=== PATIENT | male | born 1945 | race Caucasian/White ===

== ENCOUNTER 2019-04-02 15:06 | Inpatient (IN) | payer OTHER, MEDICARE ==
[~2019-04-02] VITALS: Ht 170.2 cm; Wt 104.3 kg
[~2019-04-02 15:06] MED LIST: Acidophilus La100 GM; FENO145 PO; FURO20 PO; Micro-K10 MEQ PO; SERT50 PO; ZOLP10 PO; ZYRTEC10 M2 PO
[2019-04-02] MEDS ORDERED: ALBU90OI INH (17:55)
[2019-04-02] MEDS ORDERED: ATOR40TA PO (17:55)
[2019-04-02] MEDS ORDERED: VITAMIN D325 MCG PO (17:56)
[2019-04-02] MEDS ORDERED: Flonase 0.05% N16 GM (17:59)
[2019-04-02] MEDS ORDERED: HUMULIN R500 UNIT/1 SQ (18:00)
[2019-04-02] MEDS ORDERED: LEVSOD75 PO (18:00)
[2019-04-02] MEDS ORDERED: LISI20 PO (18:01)
[2019-04-02] MEDS ORDERED: METF500 PO (18:02)
[2019-04-02] MEDS ORDERED: Robaxin-750750 MG PO (18:02)
[2019-04-02] MEDS ORDERED: METO100 PO (18:03)
[2019-04-02] MEDS ORDERED: Thera-M1 EACH PO (18:03)
[2019-04-02] MEDS ORDERED: NITR.4SL PO (18:04)
[2019-04-02] MEDS ORDERED: Omeprazole20 M1 PO (18:04)
[2019-04-02] MEDS ORDERED: Vitamin B-650 MG PO (18:05)
[2019-04-02] MEDS ORDERED: WARF5 PO (18:06)
[2019-04-02] MEDS ORDERED: Vitamin B Comple1 EA PO (18:06)
[2019-04-02] MEDS ORDERED: WARF2.5 PO (18:07)
[2019-04-02] MEDS ORDERED: Maglox Liquid360 ML PO (18:12)
[2019-04-02] MEDS ORDERED: DILTIAZEM 24HR240 M3 PO (18:12)
[2019-04-02] MEDS ORDERED: Glucose4 GM PO (18:13)
[2019-04-02] MEDS ORDERED: Humulin R500 UNIT/1 SC (18:14)
[2019-04-02] MEDS ORDERED: Thera-Gesic Ana85 GM TOP (18:16)
--- NOTE | 2019-04-02 18:54 | NUR ---
PT TO ROOM FROM ED. ORIENTED TO RM AND CALL LIGHT. BEDDING AND GOWN CHANGED. CALL LIGHT IN PLACE. PT A/O. REPORTS NO CONCERNS AT THIS TIME. DR. RIELY WAS HERE TO CHECK IN ON PT AND DISCUSS INSULIN. DR RILEY WOULD LIKE CBG Q3HRS FOR THIS PT. PT REPORTS WEARING DENTURES BUT THEY ARE AT HOME. PT R TOE IS BLACK AND MOST OF THE FOOT IS RED. REPORTS HAS NEUROPATHY AT BASELINE.
[2019-04-03 04:14] LABS: BASOPHILS ABSOLUTE AUTO 0.04 K/mm3 (0.00-0.23); BASOPHILS PERCENT AUTO 0 % (0-2); EOSINOPHILS ABSOLUTE AUTO 0.07 K/mm3 (0.00-0.68); EOSINOPHILS PERCENT AUTO 1 % (0-6); Hemoglobin 10.7 g/dL (13.5-17.5); IMMATURE GRAN PERCENT AUTO 1 % (0-1); LYMPHOCYTES PERCENT AUTO 12 % (21-46); MONOCYTES ABSOLUTE AUTO 1.08 K/mm3 (0.16-1.47); MONOCYTES PERCENT AUTO 7 % (4-13); Mean Corpuscular HGB 28.8 pg (26.0-34.0); Mean Corpuscular HGB Conc 33.4 g/dL (31.5-36.5); Mean Corpuscular Volume 86 fL (80-100); Mean Platelet Volume 9.5 fL (9.1-12.4); NEUTROPHILS ABSOLUTE AUTO 11.41 K/mm3 (1.96-9.15); NEUTROPHILS PERCENT AUTO 79 % (41-73); Platelet Count 366 K/mm3 (150-400); RDW Coefficient Variation 13.8 % (11.7-14.2); RDW Standard Deviation 43.7 fL (35.1-46.3); Red Blood Cell Count 3.72 M/mm3 (4.30-5.90)
[2019-04-03 04:34] LABS: Bun/Creatinine Ratio 14.8 (12.0-20.0); Calcium, Blood 8.9 mg/dL (8.5-10.1); Creatinine, Blood 1.28 mg/dL (0.60-1.20); Potassium, Blood 3.9 mmol/L (3.5-5.5)
[2019-04-03 04:41] LABS: Prothrombin Time Results >90.0 Sec (9.7-11.5)
[2019-04-03 04:42] LABS: International Normalized Ratio > 10.52
--- NOTE | 2019-04-03 04:57 | NUR ---
ATTEMPTED TO CALL HOSPITALIST TO NOTIFY OF CRITICAL INR VALUE. NO ANSWER AT THIS TIME. WILL WAIT FOR CALL BACK.
--- NOTE | 2019-04-03 05:12 | NUR ---
SPOKE WITH DR. SKINNER REGARDING CRITICAL LAB VALUE OF INR 10.52. ORDER TO HOLD COUMADIN.
--- NOTE | 2019-04-03 05:26 | NUR ---
SHIFT SUMMARY: PT RESTING MOST OF SHIFT. A&O X4. VS WNL. R GREAT TOE GANGRENOUS WITH FOUL ODOR. WARMTH AND REDNESS NOTED AROUND SITE. PODIATRY CONSULT CALLED IN. MINIMAL PO INTAKE. FLUIDS INFUSING PER ORDERS. TOTAL URINE OUTPUT OF 200CC. URINE SABRINA IN COLOR. INR CRITICIALLY HIGH THIS MORNING. PLAN TO HOLD COUMADIN PER ORDERS. ABX INFUSING. PT WITHOUT ANY C/O AT THIS TIME.
--- NOTE | 2019-04-03 07:36 | NUR ---
Permission for care was given 04/03/2019 at 0730.
--- NOTE | 2019-04-03 11:19 | NUR ---
CALLED DR GONG REGARDING CONSULT DR GONG PLANS TO BE IN THIS EVENING TO SEE PT. ORDERS OBTAINED TO MAKE NPO AFTER RAHEEM COBB.
[2019-04-03 14:56] LABS: International Normalized Ratio 3.52
[2019-04-03 15:02] LABS: Prothrombin Time Results 35.1 Sec (9.7-11.5)
--- NOTE | 2019-04-03 17:54 | NUR ---
SUMMARY DR GONG IN TO SEE PT THIS EVENING. PLAN FOR OR TOMORROW. PT'S CBG 308 THIS EVENING, COVERED W/12 UNITS HUMALOG PER ORDERS. PT SITTING UP EATING DINNER AT THIS TIME. R FOOT WRAPPED TO KEEP CLEAN WHEN AMBULATES. CALL LIGHT IN REACH. PT CALLS APPROPRIATELY.
--- NOTE | 2019-04-04 03:15 | NUR ---
PT MOVED FROM ROOM 232 TO ROOM 209. ALL BELONGINGS GATHERED AND TAKEN WITH PT. SAFETY MEASURES IN PLACE. WILL CONTINUE TO MONITOR.
[2019-04-04 04:44] LABS: International Normalized Ratio 1.32; Prothrombin Time Results 13.9 Sec (9.7-11.5)
--- NOTE | 2019-04-04 06:00 | NUR ---
SHIFT SUMMARY HAD RESTED SINCE BEING MOVED. HAS SPILLED URINE ON HIMSELF AND NEEDED LINEN CHANGE X2 THIS SHIFT. HAS BEEN NPO IS BEFORE MIDNIGHT. DENEIS PAIN, DISCOMFRT, OR FURTHER NEEDS AT THIS TIME. SAFETY MEASURES IN PLACE. WILL CONTINUE TO MONITOR.
--- NOTE | 2019-04-04 06:33 | NUR ---
TAKEN TO SURGERY BY DAVE MCKNIGHT.
--- NOTE | 2019-04-04 07:06 | NUR ---
PT BROUGHT TO [facility] VIA GURNEY. History, Chart, Medications and Allergies reviewed before start of procedure.Patient confirms NPO status and agrees with scheduled surgery. Lungs clear T/O to Auscultation.
--- NOTE | 2019-04-04 07:07 | NUR ---
VASCULAR ACCESS PT BROUGHT TO [facility] WITH IV ALREADY IN PLACE IN RIGHT AC WITH WINDOW DRESSING. PATENT AND INFUSING.
--- NOTE | 2019-04-04 08:10 | NUR ---
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 ASHLEY WRAP TO RLE CDI. PT A&O X4 WITH STABLE VS. DENIES N/V AND PAIN. PT APPEARS COMFORTABLE AND IS PLEASANT.
--- NOTE | 2019-04-04 17:43 | NUR ---
SHIFT SUMMARY: PT POD #0 FOR TRANSMETATARSAL AMPUTATION. NON WEIGHT BEARING TO RLE. ASHLEY WRAP CDI WITHOUT DRAINAGE. CBGS RANGING IN 200'S. COVERED WITH INSULIN PER EMAR. WORKED WITH PHYSICAL THERAPY TODAY. PT NEEDS FREQUENT REMINDERS THAT HE IS NWB TO RLE. PT USING URINAL TO VOID. OCCASIONALLY NEEDING A LINEN CHANGE. ANNE ADA DIET. DENIES N/V. PT STAND/PIVOT TO BEDSIDE COMMODE. BM X1. DENIES PAIN T/O SHIFT. CURRENTLY SITTING ON EDGE OF BED EATING DINNER WITHOUT COMPLAINTS.
--- NOTE | 2019-04-05 05:49 | NUR ---
SHIFT SUMMARY UNSUCCESSFULLY ATTEMPTED TO PLACE CONDOM CATH AT START OF SHIFT. SPILLED URINE ON HIMSELF, LINEN CHANGE ONCE. RESTED WELL THE REST OF THE SHIFT AFTER BEING GIVEN EYE MASK AND EAR PLUGS. 20G POWERGLIDE PLACED TO LEFT UPPER ARM THIS SHIFT. DENIES PAIN, DISCOMFRT, OR FURTHER NEEDS AT THIS TIME. SAFETY MEASURES IN PLACE. WILL CONTINUE TO MONITOR.
[2019-04-05 09:14] LABS: BASOPHILS ABSOLUTE AUTO 0.06 K/mm3 (0.00-0.23); BASOPHILS PERCENT AUTO 1 % (0-2); EOSINOPHILS ABSOLUTE AUTO 0.11 K/mm3 (0.00-0.68); EOSINOPHILS PERCENT AUTO 1 % (0-6); Hemoglobin 9.5 g/dL (13.5-17.5); IMMATURE GRAN ABSOLUTE AUTO 0.06 K/mm3 (0.00-0.10); IMMATURE GRAN PERCENT AUTO 1 % (0-1); LYMPHOCYTES ABSOLUTE AUTO 1.45 K/mm3 (0.84-5.20); LYMPHOCYTES PERCENT AUTO 14 % (21-46); MONOCYTES ABSOLUTE AUTO 0.99 K/mm3 (0.16-1.47); MONOCYTES PERCENT AUTO 9 % (4-13); Mean Corpuscular HGB 28.8 pg (26.0-34.0); Mean Corpuscular HGB Conc 32.8 g/dL (31.5-36.5); Mean Corpuscular Volume 88 fL (80-100); Mean Platelet Volume 9.5 fL (9.1-12.4); NEUTROPHILS ABSOLUTE AUTO 7.99 K/mm3 (1.96-9.15); NEUTROPHILS PERCENT AUTO 75 % (41-73); Platelet Count 348 K/mm3 (150-400); RDW Coefficient Variation 13.9 % (11.7-14.2); RDW Standard Deviation 45.1 fL (35.1-46.3); White Blood Cell Count 10.66 K/mm3 (4.00-11.30)
--- NOTE | 2019-04-05 13:41 | NUR ---
DR. RILEY NOTIFIED OF GRAM (+) COCCI AND CLUSTERS. BLOOD CULTURES WERE TAKEN AT THE [facility] ON 04/02/19.
--- NOTE | 2019-04-05 18:40 | NUR ---
CHEST PAIN PT REPORTED PAIN THAT RADIATED FROM HIS CHEST TO HIS ABD AFTER EATING DINNER. PT REPORTS HE HAS THIS KIND OF PAIN AT HOME AND TAKES NITRO FOR IT. AFTER 1 TAB SL NITRO AND MAALOX THE PAIN RESOLVED. WILL CONTINUE TO MONITOR.
--- NOTE | 2019-04-05 18:43 | NUR ---
SHIFT SUMMARY PT HAS REPORTED MINIMAL PAIN THIS SHIFT. IS ABLE TO REPOSITION IN BED BUT REQUIRES SOME ASSISTANCE. PT IS TOLERATING PO. VSS. WILL REPORT TO ONCOMING RN.
--- NOTE | 2019-04-06 04:30 | NUR ---
SHIFT SUMMARY NO ACUTE CHANGES THIS SHIFT. A/O W/VSS. RLE ELEVATED WITH ASHLEY WRAP IN PLACE, APPEARS C/D/I. DENIED CHEST PAIN, DISCOMFORT, OR DYSPNEA T/O SHIFT. ABLE TO ASSIST WITH REPOSITIONING. CURRENTLY RESTING IN BED WITH CALL LIGHT IN REACH. WILL CONT TO MONITOR AND GIVE REPORT TO ONCOMING RN.
--- NOTE | 2019-04-06 19:43 | NUR ---
PT HAS BEEN STABLE THIS SHIFT. PT CHANGED MIND AND IS AGREEABLE TO BKA, PLAN POSSIBLE SURGERY MONDAY. BLOOD SUGARS COVERED T/O SHIFT. PT ANNE DIET. INCONTINENT IN ATTENDS, HAD BM ON BED HUFFMAN. PT WORKED WITH THERAPY BUT WAS NOT OOB. PT TURNS WELL. PT HAS RED SCAB LIKE BUMPS TO BOTH ARMS THAT HAVE WORSENED THIS SHIFT. NO ITCHING OR PAIN. DRESSING TO RIGHT FOOT CDI. PT CALLS APPROPRIATELY.
--- NOTE | 2019-04-07 04:11 | NUR ---
SHIFT SUMMARY PT IS A/O X4. HE HAS BEEN IN BED THROUGH THE SHIFT BUT SITS ON EDGE OF BED OCCASIONALLY. PT HAS BEEN NWB TO R LEG PER ORDERS. TOLERATING PO INTAKE. PT IS INCONTINENT AND HAS BEEN WEARING ATTENS. PT HAS BEEN CHANGED MULT TIMES AND ENCOURAGED USE OF URINAL. ASSISTED WITH ADL'S PRN.
[2019-04-07 13:56] LABS: Vancomycin, Trough 7.6 ug/mL (5.0-10.0)
--- NOTE | 2019-04-07 16:28 | NUR ---
NO ACUTE CHANGES SINCE ASSUMING CARE. PT DENIES PAIN, N/V, SOB. IV ABX INFUSING PER ORDERS. NPO AT MIDNIGHT FOR SUGERY TOMORROW. USING URINAL TO VOID. CALL LIGHT WITHIN REACH. FAMILY MEMBERS AT BEDSIDE FOR SUPPORT.
--- NOTE | 2019-04-07 23:30 | NUR ---
CALLED HOSPITALIST ABOUT RASH ON PT'S ARMS THAT IS NOW APPEARING ON LEGS WELL. DISCUSSED ONSET OF RASH, RASH SPREADING/WORSENING, AND NEW PT REPORTS OF BURNING FEELING IN AREAS WITH RASH. HOSPITALIST REPORTED NOT TO STOP ANY MEDICATIONS AT THIS POINT AND ORDERED BENADRYL AND A TOPICAL CREAM. SEE EMAR. MEDS GIVEN TO PT PER ORDERS.
--- NOTE | 2019-04-08 04:27 | NUR ---
SHIFT SUMMARY PT IS A/O BUT SEEMS FORGETFUL AT TIMES. HE HAS BEEN BEDREST THIS SHIFT. PT REPOSITIONS SELF WELL AND SITS ON EDGE OF BED TO USE URINAL. PT HAS BEEN CHANGED SEVERAL TORI D/T OCCASIONAL INCONTINENC. RN DISCUSSED RASH WITH ON-CALL HOSPITALIST; MEDS ORDERED. PT IS TOLERATING PO INTAKE AND VOIDING. ASSISTED WITH ADL'S PRN.
--- NOTE | 2019-04-08 08:46 | NUR ---
DR BROWN IN TO SEE PT.
[2019-04-08 10:21] LABS: BASOPHILS ABSOLUTE AUTO 0.06 K/mm3 (0.00-0.23); BASOPHILS PERCENT AUTO 1 % (0-2); EOSINOPHILS ABSOLUTE AUTO 0.27 K/mm3 (0.00-0.68); EOSINOPHILS PERCENT AUTO 4 % (0-6); Hematocrit 31.5 % (37.0-53.0); Hemoglobin 10.2 g/dL (13.5-17.5); IMMATURE GRAN ABSOLUTE AUTO 0.04 K/mm3 (0.00-0.10); IMMATURE GRAN PERCENT AUTO 1 % (0-1); LYMPHOCYTES ABSOLUTE AUTO 0.97 K/mm3 (0.84-5.20); LYMPHOCYTES PERCENT AUTO 14 % (21-46); MONOCYTES PERCENT AUTO 9 % (4-13); Mean Corpuscular HGB 28.7 pg (26.0-34.0); Mean Corpuscular HGB Conc 32.4 g/dL (31.5-36.5); Mean Corpuscular Volume 89 fL (80-100); Mean Platelet Volume 9.5 fL (9.1-12.4); NEUTROPHILS ABSOLUTE AUTO 5.14 K/mm3 (1.96-9.15); NEUTROPHILS PERCENT AUTO 73 % (41-73); Platelet Count 373 K/mm3 (150-400); RDW Coefficient Variation 14.3 % (11.7-14.2); RDW Standard Deviation 45.9 fL (35.1-46.3); Red Blood Cell Count 3.55 M/mm3 (4.30-5.90); White Blood Cell Count 7.08 K/mm3 (4.00-11.30)
[2019-04-08 10:36] LABS: Anion Gap 8 mmol/L (6-16); Blood Urea Nitrogen 15 mg/dL (8-24); Bun/Creatinine Ratio 17.2 (12.0-20.0); CO2, Blood 22 mmol/L (21-32); Calcium, Blood 8.8 mg/dL (8.5-10.1); Chloride, Blood 108 mmol/L (98-108); Creatinine, Blood 0.87 mg/dL (0.60-1.20); Glomerular Filtration Rate >60 (60-); Glucose, Blood 166 mg/dL (70-99); Sodium, Blood 138 mmol/L (136-145)
[2019-04-08 10:39] LABS: International Normalized Ratio 1.23
--- NOTE | 2019-04-08 14:01 | NUR ---
PT TRANSFERED TO DAY SURGERY VIA BED. History, Chart, Medications and Allergies reviewed before start of procedure.Patient confirms NPO status and agrees with scheduled surgery. Lungs clear T/O to Auscultation.
--- NOTE | 2019-04-08 14:03 | NUR ---
PT TO SURGERY
[2019-04-08 14:18] LABS: Vancomycin, Trough 18.6 ug/mL (5.0-10.0)
--- NOTE | 2019-04-08 14:39 | NUR ---
DURING PREOP CONSULT, PT STATED HE TOOK A NITRO YESTERDAY FOR "PAIN IN HIS CHEST" PHARMACY WAS CONTACTED TO VERIFY AND PT HAS RECIEVED 1 TO 2 DOSES SINCE HIS HOSPITAL ADMISSION. PT STATED AGAIN THAT IT WAS FOR "PAIN IN HIS CHEST AND STOMACH THAT HAS BEEN HAPPENING AFTER EATING." DR. NGUYEN ORDERED STAT LABS AND EKG IN PREOP.
--- NOTE | 2019-04-08 15:35 | NUR ---
04/08/19 1535 [place] Sandoval all entires by [email or web address] were entered by [email or web address].
--- NOTE | 2019-04-08 15:43 | NUR ---
04/08/2019 ASKED PATIENT FOR PERMISSION TO CARE FOR SAID PATIENT ON 04/09/2019. PATIENT AGREED.
--- NOTE | 2019-04-08 17:11 | NUR ---
1650-PT NOTED TO HAVE RED SPOTTY RASH ON ALL ARMS AND LEGS.
--- NOTE | 2019-04-08 18:46 | NUR ---
PT BACK TO ROOM FROM PACU VSS. PT C/O OF CP RATING 7/10 STATING WENT DOWN TO ABDOMEN. REQUESTED NITRO WHICH WAS GIVEN PER ORDERS. NOTIFIED DR LOZA; ORDERS OBTAINED. PT REPORTED NITRO RELIEVED SYMPTOMS. RATING RLE PAIN 7/10, MEDICATED PER ORDERS AND PLACED ICE TO AFFECTED EXTREMITY. DRESSING TO RLE CDI. CALL LIGHT IN REACH. FAMILY AT BEDSIDE.
[2019-04-09 04:52] LABS: BASOPHILS ABSOLUTE AUTO 0.03 K/mm3 (0.00-0.23); BASOPHILS PERCENT AUTO 0 % (0-2); EOSINOPHILS ABSOLUTE AUTO 0.01 K/mm3 (0.00-0.68); EOSINOPHILS PERCENT AUTO 0 % (0-6); Hematocrit 29.3 % (37.0-53.0); Hemoglobin 9.4 g/dL (13.5-17.5); IMMATURE GRAN ABSOLUTE AUTO 0.07 K/mm3 (0.00-0.10); IMMATURE GRAN PERCENT AUTO 1 % (0-1); LYMPHOCYTES ABSOLUTE AUTO 0.46 K/mm3 (0.84-5.20); LYMPHOCYTES PERCENT AUTO 4 % (21-46); MONOCYTES ABSOLUTE AUTO 0.24 K/mm3 (0.16-1.47); MONOCYTES PERCENT AUTO 2 % (4-13); Mean Corpuscular HGB 28.5 pg (26.0-34.0); Mean Corpuscular HGB Conc 32.1 g/dL (31.5-36.5); Mean Corpuscular Volume 89 fL (80-100); Mean Platelet Volume 9.8 fL (9.1-12.4); NEUTROPHILS ABSOLUTE AUTO 9.74 K/mm3 (1.96-9.15); NEUTROPHILS PERCENT AUTO 92 % (41-73); Platelet Count 371 K/mm3 (150-400); RDW Coefficient Variation 14.6 % (11.7-14.2); RDW Standard Deviation 47.2 fL (35.1-46.3); White Blood Cell Count 10.55 K/mm3 (4.00-11.30)
[2019-04-09 05:08] LABS: International Normalized Ratio 1.32; Prothrombin Time Results 13.9 Sec (9.7-11.5)
[2019-04-09 05:10] LABS: Albumin, Blood 2.1 g/dL (3.4-5.0); Anion Gap 11 mmol/L (6-16); Blood Urea Nitrogen 24 mg/dL (8-24); Bun/Creatinine Ratio 16.4 (12.0-20.0); CO2, Blood 19 mmol/L (21-32); Calcium, Blood 8.3 mg/dL (8.5-10.1); Chloride, Blood 104 mmol/L (98-108); Creatinine, Blood 1.46 mg/dL (0.60-1.20); Glomerular Filtration Rate 51 (60-); Glucose, Blood 241 mg/dL (70-99); Magnesium, Blood 1.4 mg/dL (1.6-2.4); Phosphorus, Blood 4.2 mg/dL (2.5-4.9); Potassium, Blood 5.3 mmol/L (3.5-5.5); Sodium, Blood 134 mmol/L (136-145)
--- NOTE | 2019-04-09 06:30 | NUR ---
SHIFT SUMMARY LYING IN SEMI FOWLERS WITH EYES OPEN WHILE WATCHING MORNING NEWS. HAS C/O HEARTBURN AND HAVING "GIRTH", STATES THAT MOST OF THE TIME AT HOME HE WILL USE HIS NITRO TO RELIEVE THE "GIRTH". BUT HAS REQUESTED MAALOX TWICE THIS SHIFT. FOLLOW UP TROPONIN CAME IN AT 0.24 WNL, PREVIOUS TROPONIN WAS 0.29. ELEVATED BP AT START OF SHIFT, BP CONTINUES TO TREND DOWN AFTER METOPROLOL AT HS. MEDICATED FOR PAIN X1 THIS SHIFT WITH DILAUDID. HAD C/O PHANTOM PAIN TO STUMP 7/10, POST PUSH, RATES PAIN AT 0/10 WITHIN THE HOUR. UNABLE TO DRAW AM LAB FROM [facility], LAB JAVED. DENIES FURTHER NEEDS OR WANTS AT THIS TIME. SAFETY MEASURES IN PLACE. WILL CONTINUE TO MONITOR.
--- NOTE | 2019-04-09 08:45 | NUR ---
PATIENT GAVE PERMISSION FOR THIS ROUTE SALES DELIVERY DRIVERS SUPERVISOR TO PROVIDE CARE ON 04/09/19.
--- NOTE | 2019-04-09 11:49 | NUR ---
PT COMPLAINED OF CHEST PAIN X2 THIS MORINING AT 0756 AT 0905. PAIN RESOLVED WITH NITRO SL BOTH TIMES. DR. OSMAN NOTIFIED THAT PT BECAME DIAPHORETIC AND COMPLAINED OF CHEST PAIN AFTER EATING. HE ALSO REPORTS HX OF HIATAL HERNIA. PT REPORTS HE HAS THIS PAIN AT HOME AND OFTEN TREATS WITH NITRO SL. TROPONIN WNL. WILL CONTINUE TO MONITOR.
[2019-04-09 15:12] LABS: Vancomycin, Trough 25.3 ug/mL (5.0-10.0)
--- NOTE | 2019-04-09 17:28 | NUR ---
SHIFT SUMMARY PT IS A 2 ASSIST FOR TRANSFERS. HE WAS ABLE TO WORK WITH THERAPY X 1 TODAY. PT HAS DENIED PAIN THIS SHIFT. HE DID REPORT CHEST PAIN THIS MORINING JUST BEFORE AND AFTER BREAKFAST. WHEN ASKED TO DESCRIBE THE PAIN PT POINTED TO THE EPIGASTRIC AREA AND STATED IT RADIATED DOWN INTO HIS ABD. PT WAS TREATED WITH NITRO, DR. OSMAN AWARE AND OK WITH THIS USE. PAIN WAS RELIEVED AFTER NITRO. PLAN TO INCREASE USE OF MAALOX BEFORE MEALS TO ATTEMPT TO PREVENT EPIGASTRIC PAIN. WOUND CULTURES REQUESTED FROM [facility]. PT CONTINUING WITH ANTIBIOTICS. VSS. WILL MONITOR UNTIL REPORT TO ONCOMING RN.
--- NOTE | 2019-04-10 04:29 | NUR ---
SHIFT SUMMARY POD 2 R BKA, STUMP SOCK CDI, PT KEEPING LEG ELEVATED. DENIES PAIN DURING SHIFT BUT REPORTS SMALL PHANTOM PAINS. PT TOLERATING PO WELL, DENIES NAUSEA. MEDICATED FOR INDIGESTION PER EMAR X1, PT REPORTED RELIEF. PT VOIDING WITH URINAL. RASH STILL PRESENT ON EXTREMETIES, PT REPORTS IT LOOKS BETTER AND IS FEELING BETTER.
[2019-04-10 05:34] LABS: BASOPHILS ABSOLUTE AUTO 0.02 K/mm3 (0.00-0.23); BASOPHILS PERCENT AUTO 0 % (0-2); EOSINOPHILS ABSOLUTE AUTO 0.05 K/mm3 (0.00-0.68); EOSINOPHILS PERCENT AUTO 1 % (0-6); Hematocrit 27.6 % (37.0-53.0); IMMATURE GRAN ABSOLUTE AUTO 0.05 K/mm3 (0.00-0.10); IMMATURE GRAN PERCENT AUTO 1 % (0-1); LYMPHOCYTES ABSOLUTE AUTO 1.44 K/mm3 (0.84-5.20); LYMPHOCYTES PERCENT AUTO 16 % (21-46); MONOCYTES ABSOLUTE AUTO 0.56 K/mm3 (0.16-1.47); MONOCYTES PERCENT AUTO 6 % (4-13); Mean Corpuscular HGB 29.2 pg (26.0-34.0); Mean Corpuscular HGB Conc 32.6 g/dL (31.5-36.5); Mean Corpuscular Volume 90 fL (80-100); Mean Platelet Volume 9.6 fL (9.1-12.4); NEUTROPHILS ABSOLUTE AUTO 6.76 K/mm3 (1.96-9.15); NEUTROPHILS PERCENT AUTO 76 % (41-73); Platelet Count 375 K/mm3 (150-400); RDW Coefficient Variation 14.9 % (11.7-14.2); RDW Standard Deviation 48.1 fL (35.1-46.3); Red Blood Cell Count 3.08 M/mm3 (4.30-5.90); White Blood Cell Count 8.88 K/mm3 (4.00-11.30)
[2019-04-10 05:54] LABS: International Normalized Ratio 1.44; Prothrombin Time Results 15.1 Sec (9.7-11.5)
[2019-04-10 06:01] LABS: Albumin, Blood 2.2 g/dL (3.4-5.0); Anion Gap 8 mmol/L (6-16); Blood Urea Nitrogen 35 mg/dL (8-24); Bun/Creatinine Ratio 18.9 (12.0-20.0); CO2, Blood 19 mmol/L (21-32); Calcium, Blood 8.2 mg/dL (8.5-10.1); Chloride, Blood 105 mmol/L (98-108); Creatinine, Blood 1.85 mg/dL (0.60-1.20); Glomerular Filtration Rate 38 (60-); Glucose, Blood 229 mg/dL (70-99); Phosphorus, Blood 3.8 mg/dL (2.5-4.9); Potassium, Blood 5.3 mmol/L (3.5-5.5); Sodium, Blood 132 mmol/L (136-145)
--- NOTE | 2019-04-10 08:10 | NUR ---
pt just voided dk yellow pt stated that it has been snow shoveler after drinking fluids reports phantom pain 5/10 can move the stump well min swelling no drainage to stump sock asked pt if it has been changed by surg stated once
--- NOTE | 2019-04-10 09:20 | NUR ---
pt reporting heartburn from hiatal hernia meds given physical therapy wanting to work with pt
--- NOTE | 2019-04-10 12:49 | NUR ---
assisted back into bed hob elev
--- NOTE | 2019-04-10 13:23 | NUR ---
pt req pain meds [address] rolon by to see pt new stump sock placed pt to have dressing changed daily by nurses no drainage noted pt jonathan well cleaned with hydorgen pyroxide
--- NOTE | 2019-04-10 15:04 | NUR ---
talked with [facility] for req of cx they had me fax a req to med rec
--- NOTE | 2019-04-10 15:28 | NUR ---
DR OSMAN CALLED PT HAVING LOW HR UNABLE TO FIND RADIAL PULSE COOL CLAMMY EXTREMETIES PT DENIES DIZZINES PHYSICAL THERAPY TO HOLD SESSION TELE ORDERED APICAL HR 46 CHECKED BS 203 B/P 105/48
--- NOTE | 2019-04-10 16:47 | NUR ---
maryana murray at bedside to give atropine 0.[address] sequeira called dr stacy davis left re angi
--- NOTE | 2019-04-10 17:28 | NUR ---
DR LANG AT BEDSIDE HR PER TELE 46
--- NOTE | 2019-04-10 17:40 | NUR ---
MEDS GIVEN PER SCHED PT TO TRANSFER TO PCU 3 TO CALL REPORT TO JUAN MIGUEL DALEY
[2019-04-10 18:03] LABS: Troponin I 0.068 ng/mL (0.000-0.040)
[2019-04-10 18:05] LABS: Thyroid Stimulating Hormone 6.05 uIU/mL (0.360-4.800)
--- NOTE | 2019-04-10 18:29 | NUR ---
PT TO PCU FROM SURGICAL FLOOR AFTER BRADYCARDIA EVENT. PT AWAKE ALERT AND ORIENTED EATING DINNER IN BED. PT DENIES C/O PAIN OR DIZZINESS. PT STATES HE WAS ASYMPTOMAIC DURING BRADYCARDIA. PT BRADYCARDIC NOW IN 40'S. BP 104/39. PT PALE WITH RASH TO EXT X4 2ND ABX REACTION; DR MEJIA CONSULTED. DR BARNARD CONSULTED FOR CARDIAC ISSUES. PT TO HAVE ECHO; LABS DRAWN. PT S/P RIGHT BKA, POST OP DAY TWO. ANTHONY C/D/I.
[2019-04-11 04:06] LABS: BASOPHILS ABSOLUTE AUTO 0.05 K/mm3 (0.00-0.23); BASOPHILS PERCENT AUTO 1 % (0-2); EOSINOPHILS PERCENT AUTO 2 % (0-6); Hematocrit 28.2 % (37.0-53.0); Hemoglobin 8.9 g/dL (13.5-17.5); IMMATURE GRAN ABSOLUTE AUTO 0.04 K/mm3 (0.00-0.10); IMMATURE GRAN PERCENT AUTO 0 % (0-1); LYMPHOCYTES ABSOLUTE AUTO 1.89 K/mm3 (0.84-5.20); LYMPHOCYTES PERCENT AUTO 20 % (21-46); MONOCYTES PERCENT AUTO 6 % (4-13); Mean Corpuscular HGB 28.3 pg (26.0-34.0); Mean Corpuscular HGB Conc 31.6 g/dL (31.5-36.5); Mean Corpuscular Volume 90 fL (80-100); Mean Platelet Volume 9.7 fL (9.1-12.4); NEUTROPHILS ABSOLUTE AUTO 6.76 K/mm3 (1.96-9.15); NEUTROPHILS PERCENT AUTO 71 % (41-73); Platelet Count 361 K/mm3 (150-400); RDW Coefficient Variation 15.3 % (11.7-14.2); RDW Standard Deviation 49.2 fL (35.1-46.3); Red Blood Cell Count 3.14 M/mm3 (4.30-5.90); White Blood Cell Count 9.54 K/mm3 (4.00-11.30)
[2019-04-11 04:22] LABS: International Normalized Ratio 1.6; Prothrombin Time Results 16.7 Sec (9.7-11.5)
[2019-04-11 04:32] LABS: Alanine Aminotransfer (ALT/SGP 18 U/L (12-78); Albumin, Blood 2.4 g/dL (3.4-5.0); Albumin/Globulin Ratio 0.6 (0.8-1.8); Anion Gap 8 mmol/L (6-16); Aspartate Aminotrans (AST/SGOT 21 U/L (12-37); Bilirubin, Total 0.5 mg/dL (0.1-1.0); Blood Urea Nitrogen 38 mg/dL (8-24); Bun/Creatinine Ratio 19.3 (12.0-20.0); CO2, Blood 19 mmol/L (21-32); Calcium, Blood 8.6 mg/dL (8.5-10.1); Chloride, Blood 107 mmol/L (98-108); Cholesterol 71 mg/dL (50-200); Creatinine, Blood 1.97 mg/dL (0.60-1.20); Globulin, Blood 3.9 g/dL (2.2-4.0); Glomerular Filtration Rate 36 (60-); Glucose, Blood 142 mg/dL (70-99); Phosphorus, Blood 3.1 mg/dL (2.5-4.9); Potassium, Blood 5.1 mmol/L (3.5-5.5); Sodium, Blood 134 mmol/L (136-145); Total Protein, Blood 6.3 g/dL (6.4-8.2); Triglycerides 185 mg/dL (30-160); Very Low Density Lipoprot Chol 37 mg/dL (6-32)
[2019-04-11 04:35] LABS: Alk Phos 81 U/L (50-136); CHOL/HDL RATIO 3.9; HDL Cholesterol 18 mg/dL (>39); LDL/HDL RATIO 0.9; Low Density Lipoprotein Chol 16 mg/dL (0-110)
--- NOTE | 2019-04-11 06:03 | NUR ---
SHIFT SUMMARY PT REMAINS A&OX4. STUMP DRESSING C/D/I. HEART RATE HAS INCREASED OVERNIGHT, NOW IN 60S. VSS. AFEBRILE. PT VOIDS WITHOUT PROBLEMS, CLEAR YELLOW URINE. PT CONCERNED WITH GOING HOME D/T HIS DOG BEING HOME. NO ACUTE3 EVENTS OVERNIGHT. WILL CONTINUE TO MONITOR.
--- NOTE | 2019-04-11 09:30 | NUR ---
pt complaining of 8/10 chest pain, he is diphoretic, Dr. Parks notified, EKG done, he is looking over that, b/p is high, ntg given with good relief. echo being done. call light in reach.
--- NOTE | 2019-04-11 10:38 | NUR ---
Echocardiogram using 0.60ml of Definity contrast performed.
--- NOTE | 2019-04-11 10:41 | NUR ---
pt reports 4/10 chest pain again, wants another ntg, states he normally has to take two to get it to resolve. this was given. b/p is not to low. call light in reach.
--- NOTE | 2019-04-11 10:50 | NUR ---
rates chest pain at 03/29 at this time. b/p 154/76
[2019-04-11 11:05] LABS: Vancomycin, Trough 21.6 ug/mL (5.0-10.0)
--- NOTE | 2019-04-11 18:27 | NUR ---
pt has had no further events of c.p. durring the day, is feeling much better, did get up twice to bsc for a bm, had 2 large. vs stable. no complaints. doing ok at this time. call light in reach.
[2019-04-12 04:36] LABS: Hematocrit 29.6 % (37.0-53.0); Hemoglobin 9.6 g/dL (13.5-17.5); Mean Corpuscular HGB 28.8 pg (26.0-34.0); Mean Corpuscular HGB Conc 32.4 g/dL (31.5-36.5); Mean Corpuscular Volume 89 fL (80-100); Mean Platelet Volume 9.7 fL (9.1-12.4); Platelet Count 349 K/mm3 (150-400); RDW Coefficient Variation 15.1 % (11.7-14.2); RDW Standard Deviation 48.3 fL (35.1-46.3); Red Blood Cell Count 3.33 M/mm3 (4.30-5.90); White Blood Cell Count 8.76 K/mm3 (4.00-11.30)
[2019-04-12 04:53] LABS: Bun/Creatinine Ratio 16.1 (12.0-20.0); Calcium, Blood 8.8 mg/dL (8.5-10.1); Creatinine, Blood 1.61 mg/dL (0.60-1.20); Potassium, Blood 4.4 mmol/L (3.5-5.5)
[2019-04-12 04:54] LABS: International Normalized Ratio 1.95; Prothrombin Time Results 20.1 Sec (9.7-11.5)
--- NOTE | 2019-04-12 08:00 | NUR ---
pt laying in bed awake a/ox3, pleasant and cooperative with care, follows commands well, denies complaints, states he is feeling better, slept well last night, lungs are clear in upper barth, dim in bases, resp even and unlabored, is currently on r/a, hrr, tele in place runnging sr per monitor, see strip, no edema no edema noted, ppp faint, cap refill <3sec, vs stable, afebrile, iv site is clear and patent, btx4, abd flat soft nontender, voids without diff, using urinal, skin has red rash to ext, but is fading compaired to yesterday, has a right bka, dressing in place to stump, ariana, using walker to pivot to chair, cameron ,call light in reach.
--- NOTE | 2019-04-12 13:50 | NUR ---
pt transferred to medical floor, report was given to recieving nurse. pt left via bed with all his belongings, and disciplinary hearing officer's in attendence.
[2019-04-12] MEDS ORDERED: LIDO700A20 TOP (16:29)
--- NOTE | 2019-04-12 17:11 | NUR ---
PT TRANSFERED TO THE FLOOR FROM PCU THIS AFTERNOON. PT ALERT AND ORIENTED UPON TRANSFER. PT DENIES PAIN. WOUND DRESSING C/D/I. PT DENIES NEEDS, RESTING IN BED.
--- NOTE | 2019-04-13 01:03 | NUR ---
0050 PT COMPLAINED OF BURNING PAIN IN CHEST DOWN TO STOMACH AREA. DENIED JAW OR SHOULDER PAIN. PT STATED HE IS HAVING A LITTLE BIT OF SOB. VITALS TAKEN PRIOR TO SUBLINGUAL NITRO. PT RE-ASSESSED 5 MIN LATER. PT STATED HE IS FEELING BETTER. HE DOES NOT FEEL MUCH "CONGESTION". DENIES CHEST PAIN AND SOB AFTER NITRO. VITALS TAKEN AGAIN AND IS STABLE.
--- NOTE | 2019-04-13 03:24 | NUR ---
RESIDENTIAL TREATMENT SPECIALIST SUMMARY PT A/O X4. SLEPT WELL AFTER NITRO WAS GIVEN. PT STATED SYMPTOMS HAS IMPROVED AND NO FURTHER COMPLAINTS. CALLS APPROPRIATELY. CALL LIGHT WITHIN REACH. BED IN LOWEST POSITION. VSS.
[2019-04-13 08:41] LABS: International Normalized Ratio 1.95; Prothrombin Time Results 20.1 Sec (9.7-11.5)
[2019-04-13 08:49] LABS: Bun/Creatinine Ratio 15.7 (12.0-20.0); Calcium, Blood 8.4 mg/dL (8.5-10.1); Creatinine, Blood 1.66 mg/dL (0.60-1.20); Vancomycin, Trough 14.4 ug/mL (5.0-10.0)
--- NOTE | 2019-04-13 08:51 | NUR ---
PATIENT IS COMPLAINING OF 8/10 CHEST PAIN. HE STATES THAT HE DOES GET CHEST PAIN REGULARLY AT HOME. HE WAS GIVEN ONE NITRO, AT THIS TIME HE STATES "ITS STARTING TO RESOLVE" WHEN ASKED IF HE WANTS ANOTHER TO SEE IF IT GOES AWAY HE STATED "I THINK I WILL BE FINE". SPOKE WITH PCU CAMERA MECHANIC (JASMEET HODGES) WHO STATES NO NOTED EVENTS MINUS ONE PVC. PATIENT IS CURRENTLY TRYING TO "SLEEP THE PAIN OFF" AND STATES HE DOESN'T NORMALLY EAT AT HOME UNTIL 1100. HE ALSO STATES THAT AT TIMES HE GETS BAD INDIGESTION. HE IS TAKING IN NITRO AT LEAST ONCE A DAY AT HOME. "SOMETIMES IN THE MORNING, SOMETIMES AT NIGHT". THIS IS THE SECOND NITRO HE HAS REQUIRED THIS MORNING.
--- NOTE | 2019-04-13 17:17 | NUR ---
SHIFT SUMMARY PATIENT IS PLEASANT, ALERT AND ORIENTED. 2PA TO THE CHAIR. NO ACUTE CONCERNS AT THIS TIME.D ENIES PAIN. NO CHEST PAIN EITHER.
[2019-04-14 05:14] LABS: International Normalized Ratio 2.05; Prothrombin Time Results 21.1 Sec (9.7-11.5)
--- NOTE | 2019-04-14 05:57 | NUR ---
ELECTROMECHANISMS DESIGN DRAFTER SUMMARY PT COMPLAINED OF CHEST/EPIGASTRIC PAIN 10/27 WHEN I CAME ONTO SHIFT. WHEN I GOT HANDOFF REPORT FROM AM NURSE, SHE STATED THAT HE HAS RECEIVED 4 SUBLINGUAL NITROS ON HER SHIFT. MAALOX PLUS 30 ML Q6PRN PO ORDERED FOR INDIGESTION RIGHT WHEN I CAME ONTO SHIFT. I GAVE MAALOX FOR PT WE DO NOT KNOW IF IT IS CHEST PAIN RELATED TO INDIGESTION. PT REQUESTED TO HAVE NITRO MULTIPLE TIMES WHEN I EDUCATED ON HIM THAT WE NEED TO FIND OUT WHAT IS CAUSING HIS CHEST/EPIGASTRIC PAIN. PT ALSO TOLD ME HE WANTED TO HAVE A BM AND I OFFERED HIM THE BEDPAN. PT HAD A BOWEL MOVEMENT AND SAID THAT HIS EPIGASTRIC PAIN FEELS BETTER BUT CHEST STILL FEELS PAINFUL/CONGESTED. DENIES SOB 2121 I REASSED THE PT AND SURFACE SUPPLY BREATHING APPARATUS TOOK VITALS. BP WS 176/102. HE STATED HE WAS STILL HAVING CHEST PAIN BUT NO PAIN IN EPIGASTRIC AREA. PT KEPT ASKING ME FOR NITRO WHICH HE KEEPS IN HIS POCKET ALL THE TIME FOR WHEN HE NEEDS IT WHENEVER HE HAS CHEST/ EPIGASTRIC PAIN. I EDUCATED PT THAT NITRO IS HARMFUL WHEN USED WRONGLY. HOWEVER, MAALOX DID NOT RESOLVE PT'S CHEST PAIN. I MEDICATED PT WITH NITRO X1. 22:35 PT STATED HE FELT MUCH BETTER AFTER TAKING THE NITRO. 23:43 PT VITALS WERE TAKEN AND HIS BP WAS STILL HIGH 180/105. HE APPEARED IN NO DISTRESS. DENIES ANY COMFORTS AND WAS ASLEEP BEFORE I CAME INTO THE ROOM. I ATTEMPTED TO CALL DR. ISLAS TWICE WITH NO ANSWER. DR. ISLAS CALLED ME BACK AND I EXPLAINED PT'S BACKGROUND AND SITUATION. HYDRALAZINE 10 MG IV 1X NOW ORDERED. 0549 PT HAD NO FURTHER COMPLAINTS OF CHEST PAIN THROUGHOUT THE NIGHT AFTER NITRO WAS GIVEN. BLOOD PRESSURE WAS STABLE AFTER HYDRALAZINE IV WAS GIVEN. BLOOD PRESSURE 128/76 THIS MORNING.
--- NOTE | 2019-04-14 17:21 | NUR ---
SHIFT SUMMARY PATIENT IS PLEASANT, ALERT AND ORIENTED. NO ACUTE CONCERNS AT THIS TIME. PATIENT HAS DENIED CHEST PAIN TODAY BUT HAS REQUIRED COUGH MEDICINE. HE IS A BIT MORE PLEASANT TODAY.
[2019-04-14 20:31] LABS: Creatinine, Blood 1.42 mg/dL (0.60-1.20)
--- NOTE | 2019-04-15 05:46 | NUR ---
HOUSING PROPERTY MANAGER SUMMARY PT SLEPT WELL TONIGHT. HAS NOT COMPLAINED OF CHEST PAIN THIS SHIFT. PT WAS MEDICATED EARILER IN MY SHIFT WITH ROBITUSSIN AND SLEPT WELL. PT STATED HE BREATHES BETTER WHEN HE LIFTS HIM ARMS UP TO HIS HEAD. CALL APPROPRIATELY. BED BATH GIVEN. PINPOINT SKIN TEAR FOUND ON BUTTOCKS. MEPLEX APPLIED. PT BOOSTED UP IN BED A FEW TIMES TONIGHT. VSS, WILL CONTINUE TO MONITOR.
[2019-04-15 06:34] LABS: International Normalized Ratio 2.79; Prothrombin Time Results 28.2 Sec (9.7-11.5)
--- NOTE | 2019-04-15 14:15 | NUR ---
Spoke with patient on 04/15/2019 to ask permission for care. Patient verbalized agreement for [employer] Network Engineer care on morning of 04/16/2019. No further questions comments or concerns.
[2019-04-15] MEDS ORDERED: ACET325 PO (15:44)
[2019-04-15] MEDS ORDERED: ASPI81CH PO (15:44)
[2019-04-15] MEDS ORDERED: BENZ100A PO (15:46)
[2019-04-15] MEDS ORDERED: ROBITUSSIN COU237 ML PO (15:47)
[2019-04-15] MEDS ORDERED: BISA5EC PO (15:47)
[2019-04-15] MEDS ORDERED: DOCU100 PO (15:48)
[2019-04-15] MEDS ORDERED: INSULANPEN SC (15:49)
[2019-04-15] MEDS ORDERED: Humalog100 UNIT/1 SC (15:50)
[2019-04-15] MEDS ORDERED: Culturelle1 CAP PO (15:50)
[2019-04-15] MEDS ORDERED: EUTHYROX88 MCG PO (15:51)
[2019-04-15] MEDS ORDERED: LEVFLO500 PO (15:51)
[2019-04-15] MEDS ORDERED: METO50ER PO (15:54)
[2019-04-15] MEDS ORDERED: VANCO 1.51.5 GM/250 IV (15:55)
[2019-04-15] MEDS ORDERED: OXYC5 PO (15:55)
--- NOTE | 2019-04-15 16:27 | NUR ---
attempt to give report to louie. rn did not sisal picker. advised school clerk to have them give me a call.
--- NOTE | 2019-04-15 16:39 | NUR ---
report to amrita at [facility]. answer all questions.
--- NOTE | 2019-04-15 18:19 | NUR ---
[facility]
== END 2019-04-15 18:20 | DRG 239 ==
LOC: ER 15:06 → PCU 17:49 → SURS 17:49 → PCU 04-10 18:15 → MEDS 04-12 13:50 → ENPENDDIS 04-15 15:25 → MEDS 04-15 18:20
PROVIDERS: Family Medicine; Internal Medicine; Internal Medicine Cardiovascular Disease; Internal Medicine Infectious Disease; Orthopaedic Surgery; Pharmacist; ADMIT Hospitalist
PROC: 0Y6M0Z9 Detachment at Right Foot, Partial 1st Ray, Open Approach (ICD-10-PCS; 2019-04-04)
PROC: 0Y6F0ZZ Detachment at Right Knee Region, Open Approach (ICD-10-PCS; principal; 2019-04-08 15:30)
DX: E11.52 Type 2 diabetes mellitus with diabetic peripheral angiopathy with gangrene (principal); I50.33 Acute on chronic diastolic (congestive) heart failure; I96 Gangrene, not elsewhere classified; N17.9 Acute kidney failure, unspecified; R78.81 Bacteremia; I13.0 Hypertensive heart and chronic kidney disease with heart failure and stage 1 through stage 4 chronic kidney disease, or unspecified chronic kidney disease; E11.22 Type 2 diabetes mellitus with diabetic chronic kidney disease; N18.3 Chronic kidney disease, stage 3 (moderate); R21 Rash and other nonspecific skin eruption; I48.0 Paroxysmal atrial fibrillation; Z87.891 Personal history of nicotine dependence; E78.5 Hyperlipidemia, unspecified; G47.33 Obstructive sleep apnea (adult) (pediatric); F32.9 Major depressive disorder, single episode, unspecified; D63.1 Anemia in chronic kidney disease; E03.9 Hypothyroidism, unspecified; R00.1 Bradycardia, unspecified; I27.20 Pulmonary hypertension, unspecified; B95.4 Other streptococcus as the cause of diseases classified elsewhere; R07.89 Other chest pain; K21.9 Gastro-esophageal reflux disease without esophagitis; Z79.01 Long term (current) use of anticoagulants; E11.42 Type 2 diabetes mellitus with diabetic polyneuropathy; Z79.4 Long term (current) use of insulin
CPT/HCPCS: 36415; 73630; 80048; 80053; 80061; 80069; 80202; 82565; 82947; 83735; 84100; 84443; 84484; 85025; 85027; 85610; 87040; 87070; 87075; 87077; 87147; 87186; 87205; 88307; 88311; 90686; 93005; 93010; 94760; 94762; 97110; 97112; 97116; 97162; 97166; 97530; 97535; 99284-25; A9270; A9270-GY; C1751; C8929; J0360; J0461; J0696; J1100; J1170; J1885; J1940; J1956; J2001; J2250; J2270; J2370; J2405; J2704; J2710; J2765; J3010; J3370; J3475; J3480; J7030; J7050; J7120; Q0163; Q9957

== ENCOUNTER 2019-04-27 00:12 | Observation (INO) | payer OTHER, MEDICARE ==
[~2019-04-27] VITALS: Ht 170.2 cm; Wt 100.4 kg
[~2019-04-27 00:12] MED LIST changes: +ACET325 PO; +ALBU90OI INH; +ASPI81CH PO; +ATOR40TA PO; +BENZ100A PO; +BISA5EC PO; +Culturelle1 CAP PO; +DILTIAZEM 24HR240 M3 PO; +DOCU100 PO; +EUTHYROX88 MCG PO; +Flonase 0.05% N16 GM; +Glucose4 GM PO; +HUMULIN R500 UNIT/1 SQ; +Humalog100 UNIT/1 SC; +Humulin R500 UNIT/1 SC; +INSULANPEN SC; +LEVFLO500 PO; +LEVSOD75 PO; +LIDO700A20 TOP; +LISI20 PO; +METF500 PO; +METO100 PO; +METO50ER PO; +Maglox Liquid360 ML PO; +NITR.4SL PO; +OXYC5 PO; +Omeprazole20 M1 PO; +ROBITUSSIN COU237 ML PO; +Robaxin-750750 MG PO; +Thera-Gesic Ana85 GM TOP; +Thera-M1 EACH PO; +VANCO 1.51.5 GM/250 IV; +VITAMIN D325 MCG PO; +Vitamin B Comple1 EA PO; +Vitamin B-650 MG PO; +WARF2.5 PO; +WARF5 PO
[2019-04-27 00:41] LABS: BASOPHILS ABSOLUTE AUTO 0.07 K/mm3 (0.00-0.23); BASOPHILS PERCENT AUTO 1 % (0-2); EOSINOPHILS PERCENT AUTO 2 % (0-6); Hematocrit 30.5 % (37.0-53.0); Hemoglobin 9.8 g/dL (13.5-17.5); IMMATURE GRAN ABSOLUTE AUTO 0.03 K/mm3 (0.00-0.10); IMMATURE GRAN PERCENT AUTO 0 % (0-1); LYMPHOCYTES ABSOLUTE AUTO 1.17 K/mm3 (0.84-5.20); LYMPHOCYTES PERCENT AUTO 13 % (21-46); MONOCYTES PERCENT AUTO 7 % (4-13); Mean Corpuscular HGB 29.2 pg (26.0-34.0); Mean Corpuscular HGB Conc 32.1 g/dL (31.5-36.5); Mean Corpuscular Volume 91 fL (80-100); Mean Platelet Volume 10.3 fL (9.1-12.4); NEUTROPHILS ABSOLUTE AUTO 6.91 K/mm3 (1.96-9.15); NEUTROPHILS PERCENT AUTO 77 % (41-73); Platelet Count 314 K/mm3 (150-400); RDW Coefficient Variation 15.4 % (11.7-14.2); RDW Standard Deviation 50.7 fL (35.1-46.3); Red Blood Cell Count 3.36 M/mm3 (4.30-5.90); White Blood Cell Count 8.98 K/mm3 (4.00-11.30)
[2019-04-27 01:03] LABS: Albumin, Blood 3.2 g/dL (3.4-5.0); Albumin/Globulin Ratio 0.8 (0.8-1.8); Bilirubin, Total 0.6 mg/dL (0.1-1.0); Bun/Creatinine Ratio 12.4 (12.0-20.0); Calcium, Blood 8.8 mg/dL (8.5-10.1); Creatinine, Blood 1.45 mg/dL (0.60-1.20); Globulin, Blood 4.2 g/dL (2.2-4.0); Potassium, Blood 4.8 mmol/L (3.5-5.5); Total Protein, Blood 7.4 g/dL (6.4-8.2); Troponin I 0.088 ng/mL (0.000-0.040)
[2019-04-27 04:01] LABS: International Normalized Ratio 1.77; Prothrombin Time Results 18.3 Sec (9.7-11.5)
--- NOTE | 2019-04-27 05:00 | NUR ---
RECEIVED REPORT FROM MARILUZ AGUILA RN. PT TRANSPORTED TO PCU VIA [facility]. ASSUMED CARE OF PT. APPEARS LETHARGIC BUT ORIENTED. PT REPOSITIONED AND MADE COMFORTABLE. CALL LIGHT AND POSSESSIONS IN REACH, SIDE RAILS UP, BED ALARM ACTIVATED WILL CONTINUE TO MONITOR.
--- NOTE | 2019-04-27 06:50 | NUR ---
PT CONTINUES RESTING IN BED COMFORTABLY AT THIS TIME. IN NO ACUTE DISTRESS. WAS MONITORED EVERY 1-2 HOURS WITH NEEDS MET. DENIES ANY NEEDS AT THIS TIME. VS STABLE. CALL LIGHT AND POSSESSIONS IN REACH, BED IN LOW POSITION, BED ALARM ACTIVATED, SIDE RAILS UP.
[2019-04-27 08:41] LABS: Hematocrit 28.8 % (37.0-53.0); Hemoglobin 9.1 g/dL (13.5-17.5); Mean Corpuscular HGB 28.3 pg (26.0-34.0); Mean Corpuscular HGB Conc 31.6 g/dL (31.5-36.5); Mean Corpuscular Volume 90 fL (80-100); Mean Platelet Volume 10.1 fL (9.1-12.4); Platelet Count 292 K/mm3 (150-400); RDW Coefficient Variation 15.3 % (11.7-14.2); RDW Standard Deviation 49.9 fL (35.1-46.3); Red Blood Cell Count 3.21 M/mm3 (4.30-5.90); White Blood Cell Count 7.58 K/mm3 (4.00-11.30)
[2019-04-27 09:08] LABS: Albumin, Blood 2.8 g/dL (3.4-5.0); Albumin/Globulin Ratio 0.7 (0.8-1.8); Bilirubin, Total 0.6 mg/dL (0.1-1.0); Bun/Creatinine Ratio 14.9 (12.0-20.0); Calcium, Blood 8.5 mg/dL (8.5-10.1); Creatinine, Blood 1.48 mg/dL (0.60-1.20); Globulin, Blood 3.9 g/dL (2.2-4.0); Potassium, Blood 4.7 mmol/L (3.5-5.5); Total Protein, Blood 6.7 g/dL (6.4-8.2)
[2019-04-27 09:14] LABS: Troponin I 0.562 ng/mL (0.000-0.040)
--- NOTE | 2019-04-27 10:17 | NUR ---
REPORT RECEIVED FROM CHECK EXAMINER RN. PT ALERT, ORIENTED X3. PT DENIES SHORTNESS OF BREATH, CHEST PAIN OR DIZZINESS AT THIS TIME.TRACE EDEMA NOTED TO LEFT LOWER EXTREMITY. TELEMETRY SHOWS ATRIAL FIBRILATION FROM 80 TO 105. LUNG SOUNDS DIMINISHED AT BASES. ABDOMEN LARGE, ROUND, SOFT, NON TENDER, PT STATES HE HAS A HIATAL HERNIA. LAST BM 04/26/2019, DENIES NAUSEA. PT URINATING WITHOUT COMPLICATIONS. PT HAS RIGHT BKA, WITH LINEAR INCISION CDI.
--- NOTE | 2019-04-27 11:14 | NUR ---
MD RANDLE TO ROOM, POSSIBLE ANGIOGRAM TODAY, ECHOCARDIOGRAM ORERED AND DONE. PT EDUCATED ON ANGIOGRAM.
--- NOTE | 2019-04-27 11:26 | NUR ---
partial echocardiogram complete
[2019-04-27] MEDS ORDERED: ACET325 PO (12:01)
[2019-04-27] MEDS ORDERED: MELA3 PO (12:18)
[2019-04-27] MEDS ORDERED: WARF3 PO (12:40)
[2019-04-27 13:55] LABS: Source, Urine Clean Catch
[2019-04-27 14:13] LABS: Bilirubin, Urine Neg (Neg); Blood, Urine 1+ (Neg); Glucose Qualitative, Urine Neg (Neg); Ketones, Urine Neg (Neg); Leukocyte Esterase, Urine 1+ (Neg); Nitrite, Urine Neg (Neg); Protein, Urine 2+ (Neg); Urobilinogen, Urine NORM (Normal)
[2019-04-27 14:25] LABS: Appearance, Urine Clear (Clear); Color, Urine Yellow (P-Yellow)
[2019-04-27 14:26] LABS: Red Blood Cells, Urine 0-2 /hpf (0-2); White Blood Cells, Urine 0-2 /hpf (0-5)
[2019-04-27 14:27] LABS: Bacteria Not Seen /hpf; Squamous Epithelial Cells Rare /hpf (Few); Transitional Epithelial Cells Rare /hpf (0-Rare)
--- NOTE | 2019-04-27 15:11 | NUR ---
PCU TRANSFER [place]. REPORT GIVEN TO DAVE VELEZ AT [facility]. PT RETURNED TO UNIT AT 1315 WITH RIGHT RADIAL SITE, TR BAND IN PLACE WITH 9 CC OF AIR. RIGHT ARMBOARD IN PLACE. NO SIGNS OR SYMPTOMS OF BLEEDING OR HEMATOMA ON RIGHT RADIAL. PT REMAINED IN ATRIAL FIB IN 70'S WITH NO CARDIAC EVENTS PER TRUCK PACKER. SISTER PRESENT, REPORT GIVEN TO OPERATIONS ADMINISTRATOR.PT LEFT VIA GURNEY, IN NO ACUTE DISTRESS.
== END 2019-04-27 14:55 | disposition short-term general hospital (02) ==
LOC: ER 00:12 → PCU 00:13
PROVIDERS: Emergency Medicine; ADMIT Internal Medicine
PROC: 4A023N7 Measurement of Cardiac Sampling and Pressure, Left Heart, Percutaneous Approach (ICD-10-PCS; principal; 2019-04-27)
PROC: B201YZZ Plain Radiography of Multiple Coronary Arteries using Other Contrast (ICD-10-PCS; principal; 2019-04-27)
DX: I21.4 Non-ST elevation (NSTEMI) myocardial infarction (principal); I25.110 Atherosclerotic heart disease of native coronary artery with unstable angina pectoris; E11.51 Type 2 diabetes mellitus with diabetic peripheral angiopathy without gangrene; E78.5 Hyperlipidemia, unspecified; E11.22 Type 2 diabetes mellitus with diabetic chronic kidney disease; E66.9 Obesity, unspecified; I12.9 Hypertensive chronic kidney disease with stage 1 through stage 4 chronic kidney disease, or unspecified chronic kidney disease; E03.9 Hypothyroidism, unspecified; I27.20 Pulmonary hypertension, unspecified; N18.3 Chronic kidney disease, stage 3 (moderate); E11.40 Type 2 diabetes mellitus with diabetic neuropathy, unspecified; K21.9 Gastro-esophageal reflux disease without esophagitis; F32.9 Major depressive disorder, single episode, unspecified; I48.20 Chronic atrial fibrillation, unspecified; G47.30 Sleep apnea, unspecified; Z79.4 Long term (current) use of insulin; Z79.01 Long term (current) use of anticoagulants; Z79.899 Other long term (current) drug therapy; Z79.82 Long term (current) use of aspirin; Z89.511 Acquired absence of right leg below knee
CPT/HCPCS: 36415; 71046; 80053; 81001; 82550; 82947; 83690; 83880; 84484; 85025; 85027; 85610; 85730; 87086; 93005; 93010; 93308; 93321; 93454; 96374; 96375; 99152; 99285-25; C1769; C1894; C9113; G0378; J1644; J2250; J2270; J2405; J3010; J7030; Q9967

== ENCOUNTER 2021-03-05 05:16 | Day surgery (SDC) | payer OTHER ==
[~2021-03-05 05:16] MED LIST changes: +MELA3 PO; +WARF3 PO
== END 2021-03-05 23:56 | disposition home or self-care (01) ==
LOC: WOUND 05:16
DX: E11.621 Type 2 diabetes mellitus with foot ulcer (principal); L97.525 Non-pressure chronic ulcer of other part of left foot with muscle involvement without evidence of necrosis; I87.2 Venous insufficiency (chronic) (peripheral); E11.51 Type 2 diabetes mellitus with diabetic peripheral angiopathy without gangrene; Z87.891 Personal history of nicotine dependence
CPT/HCPCS: G0463

== ENCOUNTER 2021-03-17 03:34 | Day surgery (SDC) | payer OTHER | END 2021-03-18 12:00 | disposition home or self-care (01) | LOC: WOUND 03:34 | DX: L97.529 Non-pressure chronic ulcer of other part of left foot with unspecified severity (principal) | CPT/HCPCS: G0463 ==

== ENCOUNTER 2021-03-26 07:39 | Day surgery (SDC) | payer OTHER | END 2021-03-26 23:59 | disposition home or self-care (01) | LOC: WOUND 07:39 | DX: E11.621 Type 2 diabetes mellitus with foot ulcer (principal); L97.525 Non-pressure chronic ulcer of other part of left foot with muscle involvement without evidence of necrosis; M86.672 Other chronic osteomyelitis, left ankle and foot; I73.9 Peripheral vascular disease, unspecified; I87.2 Venous insufficiency (chronic) (peripheral) | CPT/HCPCS: A9270; G0463 ==

== ENCOUNTER 2021-04-06 05:50 | Day surgery (SDC) | payer OTHER | END 2021-04-06 22:49 | disposition home or self-care (01) | LOC: WOUND 05:50 | DX: E11.621 Type 2 diabetes mellitus with foot ulcer (principal); L97.522 Non-pressure chronic ulcer of other part of left foot with fat layer exposed; I87.2 Venous insufficiency (chronic) (peripheral); E11.51 Type 2 diabetes mellitus with diabetic peripheral angiopathy without gangrene; E11.40 Type 2 diabetes mellitus with diabetic neuropathy, unspecified | CPT/HCPCS: G0463 ==

== ENCOUNTER 2021-04-13 04:04 | Day surgery (SDC) | payer OTHER | END 2021-04-13 23:27 | disposition home or self-care (01) | LOC: WOUND 04:04 | DX: E11.621 Type 2 diabetes mellitus with foot ulcer (principal); L97.528 Non-pressure chronic ulcer of other part of left foot with other specified severity; I87.2 Venous insufficiency (chronic) (peripheral); E11.51 Type 2 diabetes mellitus with diabetic peripheral angiopathy without gangrene | CPT/HCPCS: G0463 ==